=== PATIENT | male | born 1995 | race Caucasian/White ===

== ENCOUNTER 2018-02-08 16:28 | Emergency (ER) | payer MEDICAID ==
[~2018-02-08] VITALS: Ht 182.9 cm; Wt 95.3 kg
[2018-02-08 16:51] VITALS: BP 110/51
== END 2018-02-08 17:11 | disposition left against medical advice (07) ==
LOC: ER 16:37
DX: S61.210A Laceration without foreign body of right index finger without damage to nail, initial encounter (principal); Z53.21 Procedure and treatment not carried out due to patient leaving prior to being seen by health care provider; W23.0XXA Caught, crushed, jammed, or pinched between moving objects, initial encounter; Y93.89 Activity, other specified; Y92.89 Other specified places as the place of occurrence of the external cause; Y99.8 Other external cause status